=== PATIENT | male | born 1945 | race Caucasian/White ===

== ENCOUNTER 2018-12-27 11:27 | Inpatient (IN) | payer MEDICARE ==
[~2018-12-27] VITALS: Ht 175.3 cm; Wt 86.3 kg
[2018-12-27 11:54] LABS: BASOPHILS % (AUTO) 0.5 % (0.0-5.0); LYMPHOCYTES % (AUTO) 10.8 % (21.0-51.0); MEAN CORPUSCULAR HEMOGLOBIN 27.5 pg (27.0-33.0); MEAN CORPUSCULAR HGB CONC 33.4 g/dL (32.0-36.0); MEAN CORPUSCULAR VOLUME 82.3 fL (79-99); MONOCYTES % (AUTO) 10.3 % (3.0-13.0); NEUTROPHILS % (AUTO) 77.4 % (40.0-77.0); PLATELET COUNT (AUTO) 216 K/uL (130-400); RED BLOOD CELL COUNT(AUTO) 3.89 MIL/uL (4.50-6.20); RED CELL DISTRIBUTION WIDTH 15.5 % (11.0-15.5); WHITE BLOOD COUNT (AUTO) 8.9 K/uL (4.8-10.8)
[2018-12-27 12:01] LABS: CREATININE 7.2 mg/dL (0.5-1.5); POTASSIUM 3.3 mmol/L (3.5-5.1)
[2018-12-27 12:06] LABS: APPEARANCE,URINE Clear (CLEAR); BILIRUBIN,URINE Negative (NEGATIVE); COLOR,URINE Yellow (YELLOW); GLUCOSE, URINE (UA) Negative (NEGATIVE); KETONES,URINE Negative (NEGATIVE); LEUKOCYTE ESTERASE ,URINE Negative (NEGATIVE); NITRATE,URINE Negative (NEGATIVE); OCCULT BLOOD,URINE Negative (NEGATIVE); PROTEIN,URINE Trace mg/dL (NEGATIVE); UROBILINOGEN,URINE 0.2 mg/dL (0.2-1.0)
[2018-12-27 12:14] LABS: ALBUMIN 3.7 g/dL (3.5-5.0); BILIRUBIN,TOTAL 0.5 mg/dL (0.2-1.0)
[2018-12-27 12:17] LABS: BACTERIA,URINE Rare /HPF (None Seen); RBC,URINE 0-1 /HPF (0-1); SQUAMOUS EPITHELIAL CELL,UR Rare /HPF (0-2); WBC,URINE 0-1 /HPF (0-1)
[2018-12-27 12:23] LABS: INR 1.01 (0.85-1.15); PARTIAL THROMBOPLASTIN TIME 27.5 SEC (26.3-35.5); PROTHROMBIN TIME 10.6 SEC (9.6-11.6)
[2018-12-27 12:33] LABS: B-TYPE NATRIURETIC PEPTIDE 1150 pg/mL (0-100)
[2018-12-27] MEDS ORDERED: SODIUM BICARB 50MEQ 50ML VIAL ONE (14:33)
[2018-12-27] MEDS ORDERED: DEXTROSE 5%-WATER 1,000 ML IV ONE (14:34)
[2018-12-27] MEDS ORDERED: MORPHINE SULFATE 2 MG/ML 1ML SYG IVP PRN (14:45)
[2018-12-27] MEDS ORDERED: ONDANSETRON HCL 4 MG/2 ML VIAL IVP PRN (14:45)
[2018-12-27] MEDS ORDERED: ACETAMINOPHEN 325 MG TAB PO PRN (14:45)
[2018-12-27] MEDS ORDERED: TAMSULOSIN HCL 0.4 MG CAP.ER.24H PO SCH (15:30)
[2018-12-27] MEDS ORDERED: POTASSIUM CHLORIDE 20 MEQ ERTAB PO SCH (15:30)
[2018-12-27] MEDS ORDERED: POTASSIUM CHLORIDE 20 MEQ ERTAB PO ONE (15:51)
[2018-12-27] MEDS ORDERED: TAMSULOSIN HCL 0.4 MG CAP.ER.24H ONE (15:52)
[2018-12-27] MEDS ORDERED: HYDRALAZINE HCL 20 MG/ML VIAL ONE (16:07)
[2018-12-27 17:56] LABS: CREATININE,URINE RANDOM 45 mg/dL (30-135)
[2018-12-27] MEDS ORDERED: MORPHINE SULFATE 2 MG/ML 1ML SYG ONE (18:05)
[2018-12-27 18:28] LABS: SODIUM,URINE RANDOM 39 mmol/l (40-220)
--- NOTE | 2018-12-27 18:40 | NUR ---
RECEIVED FROM ED VIA STRETCHER ACCOMPANIED BY ED RN. PT. AAOX3, RESP.'S EVEN AND UNLABORED. DENIES ANY C/O SOB, DENIES ANY CURRENT PAIN. F/C IN PLACE, SECURE, WITH HEMATURIA NOTED; DRAINING W/O ANY CLOTS NOTED. CALL LIGHT WITHIN REACH. SPOUSE AT BEDSIDE.
[2018-12-27 18:42] VITALS: BP 186/82
--- NOTE | 2018-12-27 19:15 | NUR ---
DR. Sharon RICHMOND IN ROOM WITH PT. FOR CONSULT; DR. RICHMOND AWARE OF HEMATURIA. PT.'S SPOUSE AT BEDSIDE.
[2018-12-27 19:33] VITALS: BP 190/67
[2018-12-27] MEDS ORDERED: TAMS0.4C32 PO (20:06)
[2018-12-27] MEDS ORDERED: HYDR-4154 PO (20:06)
[2018-12-27] MEDS ORDERED: AMLO10TA7 PO (20:11)
[2018-12-27] MEDS ORDERED: ALIS300T PO (20:11)
[2018-12-27] MEDS ORDERED: METO200T49 PO (20:11)
[2018-12-27] MEDS ORDERED: CIPR-245 PO (20:11)
[2018-12-27] MEDS ORDERED: LISI40TA4 PO (20:11)
--- NOTE | 2018-12-27 23:00 | NUR ---
Patient seen by Dr Yip. Medications reconciled. Order for lactulose x1 for constipation. Sodium Bicarb via IV. Tolerating well. IV site CDI. To catheter in place draining bright red urine. Dr Rios and Dr Yip aware. No blood clots visible. Denies pain in bladder or in penile area. Will continue to monitor.
[2018-12-27 23:08] VITALS: BP 170/92
[2018-12-27] MEDS ORDERED: HYDRALAZINE HCL 20 MG/ML VIAL IV PRN (23:15)
[2018-12-27] MEDS: LUBIPROSTONE 24 MCG CAP PO SCH (23:15)
[2018-12-27] MEDS ORDERED: RENAL DOSE IV SCH (23:15)
[2018-12-27 23:45] VITALS: BP 166/85
[2018-12-28] VITALS (9 sets, daily range): BP systolic 134–194; BP diastolic 67–94
[2018-12-28] MEDS: LEVOFLOXACIN 250 MG/D5W 50ML 50 ML IV SCH (00:09)
[2018-12-28] MEDS: TEMAZEPAM 7.5 MG CAPSULE PO PRN (00:09)
[2018-12-28] MEDS: LACTULOSE 20 GM/30 ML UDCUP PO SCH (01:29)
[2018-12-28 04:11] LABS: MEAN CORPUSCULAR HEMOGLOBIN 28.1 pg (27.0-33.0); MEAN CORPUSCULAR HGB CONC 34.3 g/dL (32.0-36.0); MEAN CORPUSCULAR VOLUME 81.9 fL (79-99); PLATELET COUNT (AUTO) 206 K/uL (130-400); RED BLOOD CELL COUNT(AUTO) 3.79 MIL/uL (4.50-6.20); RED CELL DISTRIBUTION WIDTH 15.5 % (11.0-15.5); WHITE BLOOD COUNT (AUTO) 12.5 K/uL (4.8-10.8)
[2018-12-28 04:23] LABS: % IRON SATURATION 11.6 % (30-44)
[2018-12-28 04:26] LABS: CREATININE 6.8 mg/dL (0.5-1.5); PHOSPHORUS 6.3 mg/dL (2.5-4.9)
[2018-12-28 04:27] LABS: POTASSIUM 2.9 mmol/L (3.5-5.1)
--- NOTE | 2018-12-28 04:57 | NUR ---
Patient potassium is 2.9 With a BUN of 78 and Cr of 6.8. Notified RESIDENTIAL PLUMBER Michael. No orders given. Will notify Slitter And Cutter Operator in am
[2018-12-28 05:29] LABS: BAND NEUTROPHILS % (MANUAL) 1 % (0-2); BASOPHILS % (MANUAL) 1 % (0-2); LYMPHOCYTES % (MANUAL) 9 % (22-44); MAN.DIFF COMMENT-IMPRESSION MANUAL DIFFERENTIAL; MONOCYTES % (MANUAL) 4 % (2-9); PLATELET MORPHOLOGY COMMENT ADEQUATE; SEGMENTED NEUTROPHILS % 85 % (40-70)
--- NOTE | 2018-12-28 07:37 | NUR ---
Magaly Parrish paged to notify of Critical potassium. Awaiting reply.
[2018-12-28] MEDS ORDERED: ALISKIREN HEMIFUMARATE 300 MG PO SCH (09:00)
[2018-12-28] MEDS ORDERED: HYDRALAZINE HCL 25 MG TABLET PO SCH (09:00)
[2018-12-28] MEDS ORDERED: LISINOPRIL 40 MG TABLET PO SCH (09:00)
[2018-12-28] MEDS: HYDRALAZINE HCL 25 MG TABLET PO SCH ×3 (09:03→21:07)
[2018-12-28] MEDS: LUBIPROSTONE 24 MCG CAP PO SCH ×2 (09:03→16:10)
[2018-12-28] MEDS: AMLODIPINE BESYLATE 5 MG TAB PO SCH (09:04)
[2018-12-28] MEDS: TAMSULOSIN HCL 0.4 MG CAP.ER.24H PO SCH (09:04)
[2018-12-28] MEDS: POTASSIUM CHLORIDE 20 MEQ ERTAB PO SCH (09:05)
[2018-12-28] MEDS: IRON SUCROSE COMPLEX 100 MG in SODIUM CHLORIDE 0.9% 50 ML IV SCH (09:10)
[2018-12-28] MEDS ORDERED: MINOXIDIL 2.5 MG TAB PO SCH (10:15)
[2018-12-28] MEDS ORDERED: SODIUM CHLORIDE 0.9% 1000ML 1,000 ML IV ONE (11:24)
[2018-12-28] MEDS: SODIUM CHLORIDE 0.9% 1000ML 1,000 ML IV SCH (11:33)
[2018-12-28] MEDS: METOPROLOL SUCCINATE 200 MG PO SCH (11:45)
[2018-12-28] MEDS ORDERED: COMPOUND IV MISC 1 EACH IVSOLN MISC PRN (13:15)
--- NOTE | 2018-12-28 16:14 | NUR ---
DC PLAN VISITED WITH PATIENT. PATIENT LIVES WITH SPOUSE. INDEPENDENT ABLE TO PERFORM ADL'S. PATIENT HAS NO SERVICES OR DME'S. FEEL SAFE TO RETURN HOME. Addendum: 12/28/18 at 1615 by SARA MCDONNELL RN CM Amended: Links added.
[2018-12-28] MEDS ORDERED: TAMSULOSIN HCL 0.4 MG CAP.ER.24H PO SCH (21:00)
--- NOTE | 2018-12-29 | NUR ---
UP-DATE PT DENIES ANY PAIN, S.OCheryl, BENJABELL WITHIN REACH. Addendum: 12/30/18 at 0240 by KATARZYNA DUBOSE RN RN CORRECT ROSALBA IS 12/30/2018 AT 0000
[2018-12-29] MEDS: LACTULOSE 20 GM/30 ML UDCUP PO SCH ×2 (00:15→21:36)
[2018-12-29] MEDS: SODIUM CHLORIDE 0.9% 1000ML 1,000 ML IV SCH (02:20)
[2018-12-29 03:00] VITALS: BP 168/79
[2018-12-29 04:00] LABS: HEMATOCRIT 30.5 % (42-54); MEAN CORPUSCULAR HEMOGLOBIN 27.7 pg (27.0-33.0); MEAN CORPUSCULAR HGB CONC 33.7 g/dL (32.0-36.0); MEAN CORPUSCULAR VOLUME 82.4 fL (79-99); PLATELET COUNT (AUTO) 227 K/uL (130-400); RED CELL DISTRIBUTION WIDTH 15.8 % (11.0-15.5); WHITE BLOOD COUNT (AUTO) 12.4 K/uL (4.8-10.8)
[2018-12-29 04:10] LABS: CREATININE 6.3 mg/dL (0.5-1.5)
[2018-12-29 04:17] LABS: POTASSIUM 2.9 mmol/L (3.5-5.1)
[2018-12-29 04:33] LABS: LYMPHOCYTES % (MANUAL) 9 % (22-44); MAN.DIFF COMMENT-IMPRESSION MANUAL DIFFERENTIAL; MONOCYTES % (MANUAL) 7 % (2-9); PLATELET MORPHOLOGY COMMENT ADEQUATE; SEGMENTED NEUTROPHILS % 84 % (40-70)
[2018-12-29 07:00] VITALS: BP 164/80
[2018-12-29] MEDS: HYDRALAZINE HCL 25 MG TABLET PO SCH ×3 (07:54→21:37)
[2018-12-29] MEDS: POTASSIUM CHLORIDE 20 MEQ ERTAB PO SCH ×2 (07:54→23:38)
[2018-12-29] MEDS: LUBIPROSTONE 24 MCG CAP PO SCH ×2 (07:54→16:18)
[2018-12-29] MEDS: AMLODIPINE BESYLATE 5 MG TAB PO SCH (07:54)
[2018-12-29] MEDS: TAMSULOSIN HCL 0.4 MG CAP.ER.24H PO SCH (07:54)
[2018-12-29] MEDS: IRON SUCROSE COMPLEX 100 MG in SODIUM CHLORIDE 0.9% 50 ML IV SCH (07:55)
[2018-12-29] MEDS: METOPROLOL SUCCINATE 200 MG PO SCH ×2 (07:55→10:20)
--- NOTE | 2018-12-29 08:00 | NUR ---
ASSESSMENT PT IS AAOX4. DENIES CP DENIES SOB WHILE AT REST. DENIES NV NO COMPLAINTS. SITTING UPRIGHT IN BED, TOLERATED MEAL AND MEDS. CALL LIGHT WITHIN REACH. UP TO RESTROOM, BACK TO BED.
--- NOTE | 2018-12-29 09:30 | NUR ---
DR PING ALAN SAW PATIENT ORDERS RECEIVED
[2018-12-29] MEDS ORDERED: POTASSIUM CHLORIDE 20 MEQ/100 ML BAG IV SCH (09:45)
[2018-12-29] MEDS ORDERED: POTASSIUM CHLORIDE 20MEQ/100ML 100 ML IV SCH (10:30)
[2018-12-29 11:00] VITALS: BP 151/78
[2018-12-29 16:00] VITALS: BP 141/85
[2018-12-29 18:56] VITALS: BP 157/72
--- NOTE | 2018-12-29 20:00 | NUR ---
ASSESSMENT PT RESTING QUIETLY IN BED. PT AAOX4, PLEASANT, AND COOPERATIVE. NSR, ROOM AIR, ANSARI CATHETER TO BEDSIDE DRAINAGE. UP WITH ASSISTANCE. PT DENIES ANY CHEST PAIN OR S.O.B. AT PRESENT. CALL MCGEE WITHIN REACH. ASSESSMENT COMPLETED, SEE FLOW SHEET.
--- NOTE | 2018-12-29 22:50 | NUR ---
RADIO ARTIST RADIO ARTIST MADE AWARE OF K LEVEL OF 2.9, SEE ORDERS.
[2018-12-29 23:17] VITALS: BP 128/55
[2018-12-29] MEDS: LEVOFLOXACIN 250 MG/D5W 50ML 50 ML IV SCH (23:38)
--- NOTE | 2018-12-30 | NUR ---
UP-DATE PT RESTING QUIETLY IN BED, CURRENTLY DENIES ANY PAIN OR S.O.B. CALLBELL WITHIN REACH.
[2018-12-30 03:57] VITALS: BP 151/77
[2018-12-30 04:09] LABS: HEMATOCRIT 30.1 % (42-54); MEAN CORPUSCULAR HEMOGLOBIN 28.2 pg (27.0-33.0); MEAN CORPUSCULAR VOLUME 82.8 fL (79-99); PLATELET COUNT (AUTO) 215 K/uL (130-400); RED BLOOD CELL COUNT(AUTO) 3.63 MIL/uL (4.50-6.20); RED CELL DISTRIBUTION WIDTH 15.7 % (11.0-15.5); WHITE BLOOD COUNT (AUTO) 10.9 K/uL (4.8-10.8)
[2018-12-30 04:17] LABS: CREATININE 5.5 mg/dL (0.5-1.5); MAGNESIUM 1.6 mg/dL (1.80-2.40)
[2018-12-30 04:22] LABS: EOSINOPHILS % (MANUAL) 1 % (1-6); LYMPHOCYTES % (MANUAL) 8 % (22-44); MAN.DIFF COMMENT-IMPRESSION MANUAL DIFFERENTIAL; MONOCYTES % (MANUAL) 5 % (2-9); PLATELET MORPHOLOGY COMMENT ADEQUATE; SEGMENTED NEUTROPHILS % 86 % (40-70)
--- NOTE | 2018-12-30 04:38 | NUR ---
UP-DATE PT RESTING QUIETLY IN BED, CURRENTLY DENIES ANY PAIN OR S.O.B. CALLBELL WITHIN REACH.
[2018-12-30 07:00] VITALS: BP 180/78
--- NOTE | 2018-12-30 07:00 | NUR ---
REPORT REPORT GIVEN TO JESUS ANTHONY
[2018-12-30] MEDS: LUBIPROSTONE 24 MCG CAP PO SCH ×2 (07:04→16:02)
[2018-12-30] MEDS: TAMSULOSIN HCL 0.4 MG CAP.ER.24H PO SCH (07:50)
[2018-12-30] MEDS: AMLODIPINE BESYLATE 5 MG TAB PO SCH (07:50)
[2018-12-30] MEDS: METOPROLOL SUCCINATE 200 MG PO SCH (07:51)
[2018-12-30] MEDS: POTASSIUM CHLORIDE 20 MEQ ERTAB PO SCH ×2 (07:51→22:49)
[2018-12-30] MEDS: HYDRALAZINE HCL 25 MG TABLET PO SCH ×3 (07:51→20:29)
[2018-12-30] MEDS: IRON SUCROSE COMPLEX 100 MG in SODIUM CHLORIDE 0.9% 50 ML IV SCH (07:51)
--- NOTE | 2018-12-30 08:00 | NUR ---
ASSESSMENT PT IS AAOX4 DENIES CP DENIES SOB DENIES NV NO COMPLAINTS. NOTED ANSARI CATH IN PLACE, URINE CLEARING UP MORE COMPARED TO YESTERDAY .DENIES PAIN TO SUPRAPUBIC AREA. CALL LIGHT WITHIN REACH.
[2018-12-30] MEDS ORDERED: MAGNESIUM 2GM PREMIX 50ML 50 ML IV PRN (10:00)
--- NOTE | 2018-12-30 10:30 | NUR ---
DR FENG ROUNDED MAG ORDER RECEIVED.
[2018-12-30 11:00] VITALS: BP 128/66
[2018-12-30 16:00] VITALS: BP 139/65
--- NOTE | 2018-12-30 16:00 | NUR ---
STATUS RESTING IN BED NO COMPLAINTS. DENIES PAIN. CALL LIGHT WITHIN REACH.
[2018-12-30 18:52] VITALS: BP 145/68
--- NOTE | 2018-12-30 19:35 | NUR ---
ASSESSMENT NOTE AAOX3 SITTING UP IN BED BREATHING REGULAR AND UNLABORED ON ROOM AIR. SPOUSE AT THE BEDSIDE. ASSESSMENT COMPLETED. DENIES PAIN. DRAINING LIGHT MARY URINE TO ANSARI AT BEDSIDE. PLAN OF CARE DISCUSSED WITH PATIENT. NO ACUTE SIGNS OR SYMPTOMS OF DISTRESS. REINFORCED SAFETY INSTRUCTION. CALL LIGHT IN REACH.
[2018-12-30] MEDS: TEMAZEPAM 7.5 MG CAPSULE PO PRN (22:35)
[2018-12-30] MEDS: LACTULOSE 20 GM/30 ML UDCUP PO SCH (22:49)
[2018-12-30 23:15] VITALS: BP 133/54
[2018-12-31 03:43] VITALS: BP 152/75
[2018-12-31 03:50] LABS: HEMATOCRIT 28.3 % (42-54); MEAN CORPUSCULAR HEMOGLOBIN 28.2 pg (27.0-33.0); MEAN CORPUSCULAR HGB CONC 34.4 g/dL (32.0-36.0); MEAN CORPUSCULAR VOLUME 82.1 fL (79-99); PLATELET COUNT (AUTO) 223 K/uL (130-400); RED BLOOD CELL COUNT(AUTO) 3.45 MIL/uL (4.50-6.20); RED CELL DISTRIBUTION WIDTH 15.8 % (11.0-15.5); WHITE BLOOD COUNT (AUTO) 8.7 K/uL (4.8-10.8)
[2018-12-31 03:58] LABS: BAND NEUTROPHILS % (MANUAL) 1 % (0-2); EOSINOPHILS % (MANUAL) 1 % (1-6); LYMPHOCYTES % (MANUAL) 14 % (22-44); MAGNESIUM 1.9 mg/dL (1.80-2.40); MONOCYTES % (MANUAL) 8 % (2-9); POTASSIUM 3.1 mmol/L (3.5-5.1); SEGMENTED NEUTROPHILS % 76 % (40-70)
[2018-12-31 03:59] LABS: MAN.DIFF COMMENT-IMPRESSION MANUAL DIFFERENTIAL; PLATELET MORPHOLOGY COMMENT ADEQUATE
[2018-12-31 07:17] VITALS: BP 170/76
[2018-12-31] MEDS ORDERED: POTASSIUM CHLORIDE 20 MEQ ERTAB PO SCH (07:30)
[2018-12-31] MEDS ORDERED: LUBIPROSTONE 24 MCG CAP PO PRN (07:30)
[2018-12-31] MEDS: POTASSIUM CHLORIDE 20 MEQ ERTAB PO SCH (08:14)
--- NOTE | 2018-12-31 09:49 | NUR ---
DR. Lluvia LASSITER IN ROOM SPEAKING WITH PT. AND EXPLAINING PLAN OF CARE. QUESTIONS ANSWERED BY DR. LASSITER.
[2018-12-31] MEDS: METOPROLOL SUCCINATE 200 MG PO SCH (10:25)
[2018-12-31] MEDS: HYDRALAZINE HCL 25 MG TABLET PO SCH ×2 (10:25→14:07)
[2018-12-31] MEDS: TAMSULOSIN HCL 0.4 MG CAP.ER.24H PO SCH (10:25)
[2018-12-31] MEDS: AMLODIPINE BESYLATE 5 MG TAB PO SCH (10:25)
[2018-12-31] MEDS: IRON SUCROSE COMPLEX 100 MG in SODIUM CHLORIDE 0.9% 50 ML IV SCH (10:27)
[2018-12-31 11:11] VITALS: BP 179/75
[2018-12-31 11:57] VITALS: BP 145/68
--- NOTE | 2018-12-31 16:00 | NUR ---
HL REMOVED, CATHETER INTACT. LEG BAG APPLIED TO ANSARI CATHETER. DISCHARGE INSTRUCTIONS GIVEN TO PT. AND SPOUSE AT BEDSIDE, VERBALIZED MUTUAL UNDERSTANDING.
--- NOTE | 2018-12-31 16:20 | NUR ---
DISCHARGED HOME VIA W/C WITH BELONGINGS ACCOMPANIED BY SPOUSE AND CHOCO GARCIA.
== END 2018-12-31 16:50 | disposition home or self-care (01) | DRG 690 ==
LOC: EDH 11:27 → EDHIP 13:55 → 2AH 18:36
PROVIDERS: ADMIT Internal Medicine; ATTEND Internal Medicine
DX: N30.91 Cystitis, unspecified with hematuria (principal); E87.1 Hypo-osmolality and hyponatremia; N17.9 Acute kidney failure, unspecified; N18.9 Chronic kidney disease, unspecified; I12.9 Hypertensive chronic kidney disease with stage 1 through stage 4 chronic kidney disease, or unspecified chronic kidney disease; E11.22 Type 2 diabetes mellitus with diabetic chronic kidney disease; N40.0 Benign prostatic hyperplasia without lower urinary tract symptoms; D64.9 Anemia, unspecified; E87.6 Hypokalemia; I25.10 Atherosclerotic heart disease of native coronary artery without angina pectoris; K59.00 Constipation, unspecified; N40.1 Benign prostatic hyperplasia with lower urinary tract symptoms; N41.9 Inflammatory disease of prostate, unspecified; R33.8 Other retention of urine; Z88.0 Allergy status to penicillin; Z91.19 Patient's noncompliance with other medical treatment and regimen; Z80.0 Family history of malignant neoplasm of digestive organs; Z82.49 Family history of ischemic heart disease and other diseases of the circulatory system; Z82.0 Family history of epilepsy and other diseases of the nervous system; Z84.89 Family history of other specified conditions
CPT/HCPCS: 36415; 70450; 71045; 74176; 76770; 80048; 80053; 81001; 82550; 82570; 83540; 83550; 83735; 83874; 83880; 84100; 84132; 84300; 84484; 85025; 85610; 85730; 93005; 99291; G0378; J0360; J1756; J1956; J2405; J3475; J3480; J3490; J7030; J7070

== ENCOUNTER 2019-01-03 08:32 | Observation (INO) | payer MEDICARE ==
[~2019-01-03] VITALS: Ht 175.3 cm; Wt 84.5 kg
[~2019-01-03 08:32] MED LIST: AMLO10TA7 PO; HYDR-4154 PO; METO200T49 PO; TAMS0.4C32 PO
[2019-01-03 09:16] LABS: BASOPHILS % (AUTO) 0.6 % (0.0-5.0); EOSINOPHILS % (AUTO) 1.9 % (0.0-8.0); HEMATOCRIT 33.1 % (42-54); LYMPHOCYTES % (AUTO) 12.2 % (21.0-51.0); MEAN CORPUSCULAR HEMOGLOBIN 27.8 pg (27.0-33.0); MEAN CORPUSCULAR HGB CONC 33.8 g/dL (32.0-36.0); MEAN CORPUSCULAR VOLUME 82.4 fL (79-99); MONOCYTES % (AUTO) 10.6 % (3.0-13.0); NEUTROPHILS % (AUTO) 74.7 % (40.0-77.0); NUCLEATED RED BLOOD CELLS 0.1 % (0.0-0.19); PLATELET COUNT (AUTO) 263 K/uL (130-400); RED BLOOD CELL COUNT(AUTO) 4.02 MIL/uL (4.50-6.20); RED CELL DISTRIBUTION WIDTH 15.4 % (11.0-15.5); WHITE BLOOD COUNT (AUTO) 7.3 K/uL (4.8-10.8)
[2019-01-03 09:26] LABS: APPEARANCE,URINE CLOUDY (CLEAR); BILIRUBIN,URINE NEGATIVE (NEGATIVE); COLOR,URINE RED (YELLOW); GLUCOSE, URINE (UA) NEGATIVE (NEGATIVE); KETONES,URINE NEGATIVE (NEGATIVE); LEUKOCYTE ESTERASE ,URINE TRACE (NEGATIVE); NITRATE,URINE NEGATIVE (NEGATIVE); OCCULT BLOOD,URINE LARGE (NEGATIVE); PH,URINE 6.5 (5.0-8.0); PROTEIN,URINE 100 mg/dL (NEGATIVE); UROBILINOGEN,URINE 0.2 mg/dL (0.2-1.0)
[2019-01-03 09:30] LABS: POTASSIUM 2.8 mmol/L (3.5-5.1)
[2019-01-03 09:31] LABS: BACTERIA,URINE Rare /HPF (None Seen); RBC,URINE TNTC /HPF (0-1); SQUAMOUS EPITHELIAL CELL,UR Rare /HPF (0-2); WBC,URINE 0-1 /HPF (0-1)
[2019-01-03] MEDS ORDERED: POTASSIUM CHLORIDE 20 MEQ ERTAB PO ONE (09:36)
[2019-01-03] MEDS ORDERED: MAGNESIUM OXIDE 400 MG TABLET PO ONE (09:37)
[2019-01-03] MEDS ORDERED: POTASSIUM CHLORIDE 20MEQ/100ML 200 ML IV ONE (10:29)
[2019-01-03] MEDS ORDERED: LIDOCAINE HCL-MPF 1% 2ML VIAL ONE (10:31)
[2019-01-03] MEDS ORDERED: ACETAMINOPHEN 325 MG TAB PO PRN (11:15)
[2019-01-03] MEDS ORDERED: ONDANSETRON HCL 4 MG/2 ML VIAL IV PRN (11:15)
[2019-01-03] MEDS ORDERED: HYDRALAZINE HCL 20 MG/ML VIAL IV PRN (11:15)
[2019-01-03] MEDS: POTASSIUM CHLORIDE 20 MEQ ERTAB PO SCH ×2 (11:30→19:28)
[2019-01-03 12:40] VITALS: BP 157/80
[2019-01-03] MEDS: SODIUM CHLORIDE 0.9% 1000ML 1,000 ML IV SCH (12:56)
--- NOTE | 2019-01-03 13:00 | NUR ---
ARRIVAL TO FLOOR ROOM 225 FROM ER. PATIENT IS AAOX4 DENIES CP DENIES SOB DENIES NV NO COMPLAINTS. NOTED ANSARI IN PLACE TO LEG BAG. STATES ANSARI CATH IS SAME ONE THAT WAS INSERTED ON 12/27. LEG BAG CHANGED OUT TO REGULAR BEDSIDE BAG. NO COMPLAINTS. ARRIVED WITH ORDERED. FAMILY IS AT BEDSIDE, CALL LIGHT WITHIN REACH.
[2019-01-03 16:00] VITALS: BP 159/73
[2019-01-03] MEDS: FAMOTIDINE 20MG TAB 20 MG TAB PO SCH (19:48)
[2019-01-03 20:03] VITALS: BP 136/70
[2019-01-03] MEDS ORDERED: POTASSIUM CHLORIDE 20 MEQ ERTAB PO SCH (21:30)
[2019-01-03] MEDS ORDERED: LORAZEPAM 1 MG TABLET PO ONE (22:45)
[2019-01-03] MEDS ORDERED: LORAZEPAM 1 MG TABLET ONE (22:49)
[2019-01-04 00:09] VITALS: BP 146/76
[2019-01-04 03:54] LABS: HEMATOCRIT 28.5 % (42-54); MEAN CORPUSCULAR HEMOGLOBIN 27.9 pg (27.0-33.0); MEAN CORPUSCULAR HGB CONC 33.7 g/dL (32.0-36.0); MEAN CORPUSCULAR VOLUME 82.7 fL (79-99); PLATELET COUNT (AUTO) 220 K/uL (130-400); RED BLOOD CELL COUNT(AUTO) 3.45 MIL/uL (4.50-6.20); RED CELL DISTRIBUTION WIDTH 15.7 % (11.0-15.5); WHITE BLOOD COUNT (AUTO) 6.4 K/uL (4.8-10.8)
[2019-01-04 04:00] LABS: CREATININE 3.8 mg/dL (0.5-1.5); POTASSIUM 3.1 mmol/L (3.5-5.1)
[2019-01-04 04:01] VITALS: BP 144/75
--- NOTE | 2019-01-04 07:45 | NUR ---
AM ASSESSMENT PT LAYING ON BED, HOB ELEVATED 30 DEGREES, RESTING. @ BEDSIDE. A/O X 3. NO SOB. NO DISTRESS NOTED. DENIES CHEST PAIN OR DISCOMFORT. DENIES PALPITATIONS. TELE: SR 60s. 16 FR FC PATENT & DRAINING. PINK TINGED URINE. NO BLOOD CLOTS IN URINE. DENIES N/V AND/OR DIARRHEA. UP W/ASSISTANCE. CALL MCGEE W/IN REACH.
[2019-01-04] MEDS ORDERED: POTASSIUM CHLORIDE 20 MEQ ERTAB PO SCH (08:00)
[2019-01-04 08:06] VITALS: BP 166/82
[2019-01-04] MEDS ORDERED: POTASSIUM CHLORIDE 10% ELIXIR 20 MEQ/15 ML UDCUP PO SCH ×2 (08:30→16:00)
[2019-01-04] MEDS ORDERED: POTASSIUM CHLORIDE 10% ELIXIR 20 MEQ/15 ML UDCUP ONE (08:32)
[2019-01-04] MEDS: FAMOTIDINE 20MG TAB 20 MG TAB PO SCH (08:42)
[2019-01-04] MEDS: HYDRALAZINE HCL 25 MG TABLET PO SCH ×2 (08:42→13:52)
[2019-01-04] MEDS ORDERED: AMLODIPINE BESYLATE 5 MG TAB PO SCH (09:00)
[2019-01-04] MEDS ORDERED: TAMSULOSIN HCL 0.4 MG CAP.ER.24H PO SCH (09:00)
[2019-01-04] MEDS ORDERED: METOPROLOL TARTRATE 50 MG TAB PO SCH (09:00)
[2019-01-04 11:58] VITALS: BP 145/72
--- NOTE | 2019-01-04 12:25 | NUR ---
MD NOTIFICATION DR VILLEGAS NOTIFIED POTASSIUM RECHECK 3.2. NO NEW ORDERS RECEIVED @ THIS TIME.
[2019-01-04] MEDS: SODIUM CHLORIDE 0.9% 1000ML 1,000 ML IV SCH (13:55)
[2019-01-04 16:43] VITALS: BP 147/77
--- NOTE | 2019-01-04 17:30 | NUR ---
DISCHARGE VERBAL & WRITTEN DISCHARGE INSTRUCTIONS REVIEWED & GIVEN TO PT & SPOUSE. QUESTIONS ENCOURAGED & CLARIFIED. PROPER CARE & MGT OF HYPOKALEMIA REVIEWED. PT TO CONTINUE HOME MEDICATIONS. F/U APPT W/PRIMARY MD ON MON, 01/07/19 @ 0900. PT & SPOUSE AWARE. COPY OF TODAY'S BMP & POTASSIUM RECHECK RESULTS GIVEN TO PT. INFORMED TO TAKE RESULTS TO PRIMARY MD ON MONDAY. TELE GISELA REMOVED. IV DISCONTINUED. PT & SPOUSE TO GATHER PERSONAL BELONGINGS. PENDING TO CHANGE ANSARI BAG TO LEG BAG.
--- NOTE | 2019-01-04 18:15 | NUR ---
DISCHARGE ANSARI BAG CHANGED TO LEG BAG @ THIS TIME. PT & SPOUSE TO GATHER PERSONAL BELONGINGS. WILL NOTIFY STAFF WHEN READY TO BE TAKEN TO PRIVATE VEHICLE.
--- NOTE | 2019-01-04 18:35 | NUR ---
DISCHARGE PT TAKEN TO PRIVATE VEHICLE VIA WC BY Tatianna ELIZABETH PCP, ACCOMPANIED BY SPOUSE. NO DISTRESS NOTED.
== END 2019-01-04 18:35 | disposition home or self-care (01) ==
LOC: EDH 08:32 → EDHIP 11:04 → 2DH 12:40
PROVIDERS: ADMIT Internal Medicine; ATTEND Internal Medicine
DX: N40.1 Benign prostatic hyperplasia with lower urinary tract symptoms (principal); R31.0 Gross hematuria; E87.5 Hyperkalemia; E87.6 Hypokalemia; I10 Essential (primary) hypertension; N17.0 Acute kidney failure with tubular necrosis; Z80.0 Family history of malignant neoplasm of digestive organs; Z79.899 Other long term (current) drug therapy
CPT/HCPCS: 36415 ×2; 80048 ×2; 81001; 83735; 84132 ×2; 85025; 85027; 93005 ×2; 99284; A4344; G0378 ×32; J3480; J3490; J7030 ×3; 96360; 96361

== ENCOUNTER → 2019-01-17 | Outpatient (CLI) | payer MEDICARE ==
[2019-01-17 10:23] LABS: EOSINOPHILS % (AUTO) 1.8 % (0.0-8.0); HEMATOCRIT 31.7 % (42-54); LYMPHOCYTES % (AUTO) 16.2 % (21.0-51.0); MEAN CORPUSCULAR HEMOGLOBIN 28.9 pg (27.0-33.0); MEAN CORPUSCULAR HGB CONC 33.9 g/dL (32.0-36.0); MEAN CORPUSCULAR VOLUME 85.1 fL (79-99); MONOCYTES % (AUTO) 12.3 % (3.0-13.0); NEUTROPHILS % (AUTO) 68.7 % (40.0-77.0); PLATELET COUNT (AUTO) 217 K/uL (130-400); RED BLOOD CELL COUNT(AUTO) 3.72 MIL/uL (4.50-6.20); RED CELL DISTRIBUTION WIDTH 15.6 % (11.0-15.5); WHITE BLOOD COUNT (AUTO) 6.8 K/uL (4.8-10.8)
[2019-01-17 10:24] LABS: CREATININE 2.8 mg/dL (0.5-1.5); POTASSIUM 3.7 mmol/L (3.5-5.1)
== END | disposition home or self-care (01) ==
LOC: LAB 09:41
PROVIDERS: ATTEND Urology
DX: N13.30 Unspecified hydronephrosis (principal)
CPT/HCPCS: 36415; 80048; 85025

== ENCOUNTER 2019-01-19 21:15 | Emergency (ER) | payer MEDICARE | END 2019-01-19 21:41 | disposition home or self-care (01) | LOC: EDH 21:15 | DX: Z46.6 Encounter for fitting and adjustment of urinary device (principal); I10 Essential (primary) hypertension; Z88.0 Allergy status to penicillin; Z98.890 Other specified postprocedural states ==

== ENCOUNTER → 2019-01-22 | Outpatient (CLI) | payer MEDICARE | END | disposition home or self-care (01) | LOC: SHCH 10:24 | PROVIDERS: ATTEND Internal Medicine Cardiovascular Disease | DX: I65.23 Occlusion and stenosis of bilateral carotid arteries (principal); I51.7 Cardiomegaly; I35.0 Nonrheumatic aortic (valve) stenosis | CPT/HCPCS: 93306; 93880 ==

== ENCOUNTER → 2019-01-23 | Outpatient (CLI) | payer MEDICARE | END | disposition home or self-care (01) | LOC: RAH 07:43 | PROVIDERS: ATTEND Urology | DX: N28.1 Cyst of kidney, acquired (principal); N40.0 Benign prostatic hyperplasia without lower urinary tract symptoms; N13.30 Unspecified hydronephrosis; K76.89 Other specified diseases of liver; N32.89 Other specified disorders of bladder; M47.817 Spondylosis without myelopathy or radiculopathy, lumbosacral region; K57.90 Diverticulosis of intestine, part unspecified, without perforation or abscess without bleeding | CPT/HCPCS: 74176 ==

== ENCOUNTER → 2019-02-06 | Outpatient (CLI) | payer MEDICARE | END | disposition home or self-care (01) | LOC: RAH 11:18 | PROVIDERS: ATTEND Urology | DX: N28.1 Cyst of kidney, acquired (principal); N40.0 Benign prostatic hyperplasia without lower urinary tract symptoms | CPT/HCPCS: 76770 ==

== ENCOUNTER → 2019-10-11 | Outpatient (CLI) | payer MEDICARE ==
[~2019-10-11] MED LIST changes: +FERR324T PO; +FOLI1TAB15 PO; +TAMS-1 PO; -TAMS0.4C32 PO
== END | disposition home or self-care (01) ==
LOC: RAH 13:34
PROVIDERS: ATTEND Urology
DX: N43.3 Hydrocele, unspecified (principal); N45.3 Epididymo-orchitis; R39.198 Other difficulties with micturition; N13.1 Hydronephrosis with ureteral stricture, not elsewhere classified; N50.3 Cyst of epididymis; N18.9 Chronic kidney disease, unspecified; N28.1 Cyst of kidney, acquired
CPT/HCPCS: 76770; 76870

== ENCOUNTER → 2020-04-28 | Outpatient (CLI) | payer MEDICARE ==
[~2020-04-28] VITALS: Ht 175.3 cm; Wt 98.0 kg
[~2020-04-28] MED LIST changes: +REGADENOSON 0.4 MG/5 ML PF SYG IVP SCH
== END | disposition home or self-care (01) ==
LOC: SHCH 08:34
PROVIDERS: ATTEND Internal Medicine Cardiovascular Disease
DX: I21.19 ST elevation (STEMI) myocardial infarction involving other coronary artery of inferior wall (principal)
CPT/HCPCS: 78452; 93017; 96374; A9500 ×2; J2785